=== PATIENT | male | born 1970 | race Caucasian/White ===

== ENCOUNTER 2022-08-03 16:43 | Emergency (ER) | payer SELFPAY ==
[~2022-08-03] VITALS: Ht 175.3 cm; Wt 80.0 kg
[2022-08-03 19:51] LABS: HEMATOCRIT. 38.9 % (42.0-52.0); HEMOGLOBIN. 13.2 g/dL (14.0-18.0); MEAN CORPUSCULAR HEMOGLOBIN 33.4 pg (28.0-32.0); MEAN CORPUSCULAR VOLUME 98.7 fL (80.0-94.0); MEAN PLATELET VOLUME 8.7 fl (7.4-10.4); PLATELET 88 x1000/uL (130-400); RED BLOOD CELL COUNT 3.94 mill/uL (4.7-6.1); RED CELL DISTRIBUTION WIDTH 13.4 % (11.6-14.6)
[2022-08-03 19:58] LABS: CHLORIDE 97 mEq/L (98-107)
[2022-08-03 20:07] LABS: ETHANOL BLOOD 161 mg/dL
[2022-08-03 20:52] LABS: PLATELET ESTIMATE DECREASED
[2022-08-03] MEDS ORDERED: LORAZEPAM 2MG/ML CPJ IV NR (21:15)
[2022-08-03] MEDS ORDERED: LORAZEPAM 2MG/ML CPJ IV ONE (23:00)
[2022-08-04] MEDS ORDERED: LORAZEPAM 2MG/ML CPJ IV ONE (00:15)
[2022-08-04] MEDS ORDERED: LEVETIRACETAM 500MG PREMIX 100 ML IV NR (00:30)
[2022-08-04] MEDS ORDERED: LABETALOL HCL VIAL 20 MG/4 ML VIAL IV ONE (00:45)
[2022-08-04] MEDS ORDERED: LABETALOL 5MG/ML SYR 20 MG/4 ML SYRINGE IV NR (00:45)
[2022-08-04] MEDS ORDERED: MANNITOL 12.5G (25%) VIAL 50ML IV NR (01:00)
[2022-08-04] MEDS ORDERED: FENTANYL 2500MCG/250ML PMX 250 ML IV ONE (01:15)
[2022-08-04 01:25] LABS: CLARITY URINE TURBID (CLEAR); COLOR URINE ORANGE (YELLOW); KETONES URINE 1+ (NEGATIVE); LEUKOCYTE ESTERASE URINE NEGATIVE (NEGATIVE); NITRITE URINE NEGATIVE (NEGATIVE); OCCULT BLOOD URINE 3+ (NEGATIVE); PROTEIN URINE 2+ (NEGATIVE)
[2022-08-04] MEDS ORDERED: FENTANYL CITRATE 2,500 MCG in SODIUM CHLORIDE 0.9% 200 ML IV PRN (01:30)
[2022-08-04 01:39] LABS: BG BASE EXCESS 1.8 mmol/L (-2.0-2.0); BG CARBOXYHEMOGLOBIN 0.5 % (0.5-1.5); BG FRACTION INSPIRED OXYGEN 100; BG HCO3 ACT 28.2 mmol/L (22.0-26.0); BG METHEMOGLOBIN 0.4 % (0.0-1.5); BG OXYGEN SATURATION 93.9 % (92.0-98.5); BG OXYHEMOGLOBIN 93.1 % (94.0-97.0); BG PCO2 51.4 mmHg (35.0-45.0); BG PH 7.357 (7.350-7.450); BG PO2 80.1 mmHg (75.0-100.0); BG SAMPLE SITE RIGHT BRACHIAL; BG VENT MODE VENT - AC
[2022-08-04 01:41] LABS: *AMPHETAMINES SCREEN URINE NEGATIVE (NEGATIVE); *BARBITURATES SCREEN URINE NEGATIVE (NEGATIVE); *BENZODIAZEPINES SCREEN URINE NEGATIVE (NEGATIVE); *COCAINE SCREEN URINE NEGATIVE (NEGATIVE); CANNABINOID URINE SCREEN PRESUMTIVE POSITIVE (NEGATIVE); METHADONE URINE SCREEN NEGATIVE (NEGATIVE); OPIATES URINE SCREEN NEGATIVE (NEGATIVE); PHENCYCLIDINE URINE SCREEN NEGATIVE (NEGATIVE)
[2022-08-04] MEDS: PROPOFOL 10MG/ML 100ML 100 ML IV SCH ×2 (06:34→09:44)
[2022-08-04 10:38] VITALS: BP 116/71
== END 2022-08-04 11:04 | disposition short-term general hospital (02) ==
LOC: ER 16:50
DX: I62.00 Nontraumatic subdural hemorrhage, unspecified (principal); F10.239 Alcohol dependence with withdrawal, unspecified; Y90.6 Blood alcohol level of 120-199 mg/100 ml; I49.8 Other specified cardiac arrhythmias; Z20.822 Contact with and (suspected) exposure to COVID-19
CPT/HCPCS: 31500; 36415; 36600; 70450; 71045; 80053; 80305; 80320; 81003; 82375; 82805; 84484; 85025; 87420; 87426; 87804; 93005; 94002; 94003; 99291; C9803; J2060; J2150; J2704; J3010; J7050; Z7610; J1953; J3490; G0480